=== PATIENT | female | born 1965 | race Hispanic/Latino ===

== ENCOUNTER → 2020-11-08 | Outpatient (CLI) | payer SELFPAY | LOC: DX 11:21 | PROVIDERS: ATTEND Otolaryngology Otolaryngology/Facial Plastic Surgery | DX: R07.0 Pain in throat (principal); R13.10 Dysphagia, unspecified | CPT/HCPCS: 74230; U0002 ==

== ENCOUNTER → 2020-11-28 | Day surgery (SDC) | payer BC ==
[~2020-11-28] MED LIST: BUPIVACAINE 0.5%/EPI 30 ML SDV INJ ONE; CELEXA20 MG PO; DEXAMETHASONE SOD PHOS INJ 4 MG/ML VIAL ONE; LIDOCAINE HCL 2% LOCAL INJ 5 ML SDV VIAL INJ ONE; ONDANSETRON HCL INJ 2MG/ML 2ML 2 MG/ML VIAL ONE; POVIDONE IODINE 0.05% 0.05 % ML PO ONE; PROPOFOL IV EMULSION 10 MG/ML 20 ML VIAL ONE; ROCURONIUM BROMIDE 10 MG/ML 5ML VIAL IV ONE; SEVOFLURANE INHAL SOLN 250 ML PEN BTL ONE; TRAZODONE HCL50 MG PO
[2020-11-28 09:15] VITALS: BP 178/80
== END | disposition home or self-care (01) ==
LOC: OR 05:44
PROVIDERS: ATTEND Otolaryngology Otolaryngology/Facial Plastic Surgery
DX: J35.01 Chronic tonsillitis (principal); M32.9 Systemic lupus erythematosus, unspecified; F41.9 Anxiety disorder, unspecified; F32.9 Major depressive disorder, single episode, unspecified; Z87.01 Personal history of pneumonia (recurrent)
CPT/HCPCS: 42826; 88304; 93005; J1100; J2001; J2405; J2704